=== PATIENT | female | born 2000 | race Caucasian/White ===

== ENCOUNTER → 2024-02-29 | Outpatient (CLI) | payer MEDICAID, SELFPAY ==
[2024-03-04 16:09] LABS: HPV APTIMA, High Risk Negative (Negative)
[2024-03-04 16:47] LABS: HPV Reflexed? YES, CHARGE PATIENT
== END | disposition home or self-care (01) ==
PROVIDERS: Referring Provider Nurse Practitioner Family; Visit Provider Nurse Practitioner Family
DX: Z01.419 Encounter for gynecological examination (general) (routine) without abnormal findings (principal)
CPT/HCPCS: 87624; 88175; G0145

== ENCOUNTER 2025-02-03 09:55 | Emergency (ER) | payer SELFPAY ==
[2025-02-03 09:56] VITALS: BP 119/66; PULSE 80; RESP 18; TEMP 36.9; O2SAT 100; BMI 33.9
[2025-02-03] MEDS: Orphenadrine 60 MG/2 ML Ampul IM (10:32)
--- NOTE | 2025-02-03 10:32 | EDS_ITS ---
HPI History of Present Illness Chief Complaint: Back Narrative Narrative: 24-year-old female past medical history of previous sciatica, last episode approximately 1 year ago which she self treated with [id number] medications presents with at least 3 days of increasing low back pain. She denies any fevers or chills, no loss of bowel or bladder, no saddle anesthesia. She states it feels like her previous sciatica episodes where she has left low back pain that radiates down her leg. Pain is sharp and stabbing. It is worse with standing and walking and even movement of her low back. No recent falls. She has been trying acetaminophen without relief. PFSH PFS Medical History no medical history no medical history Home Medications ?Medication ?Instructions ?Recorded ?Last Taken ?Type cyclobenzaprine 10 mg tablet 10 mg PO TID PRN Muscle S pasm #20 02/03/25 Unknown Rx TABLETS naproxen 500 mg tablet (Naprosyn) 500 mg PO BID PRN pa in #20 tabs 02/03/25 Unknown Rx Allergy/AdvReac Type Severity Reaction Status Date / Time No Known Allergies Allergy Verified 02/03/25 09:56 Social History Smoking Status: Never smoker ROS ROS ED ROS Narrative Review of systems positive for low back pain with radiation down left leg to foot. No fevers or chills, no loss of bowel or bladder, no saddle anesthesia. Described more as sharp and stabbing. No recent falls or trauma. No dysuria or hematuria. Similar to previous sciatica episode last year. Ongoing for 3 days. EXAM Physical Exam Narrative Exam Narrative: Afebrile. Vital signs noted. Nontoxic-appearing. Cardiovascular examination regular rate and rhythm. Lungs are clear to auscultation bilaterally. Abdomen is soft nontender with positive bowel sounds. Mild tenderness to palpation on left paraspinal musculature with minimal and sciatic notch. No vertebral point tenderness or step-off noted. Neurovascular tact of bilateral lower extremities. Tightness in back elicited with straight leg raising, but negative for cross symptoms. DTRs equal and symmetric. Palpable dorsalis pedis pulse, l eft. EHL intact bilaterally. Const Vital Signs: 02/03/25 09:56 Temperature 98.4 F Temperature Source Oral Pulse Rate 80 Respiratory Rate 18 Blood Pressure 119/66 Blood Pressure Mean 83 Pulse Ox 100 Oxygen Delivery Method Room Air MDM MDM MDM Narrative Medical decision making narrative: The differential diagnosis includes but not limited to sciatica versus disc herniation versus musculoskeletal back pain. Clinically I have low suspicion for cauda equina and there are no red flag signs. I do not feel that she requires imaging as there is been no recent trauma. I do not feel she requires laboratory work either. She has a Nexplanon so I am not concerned about ectopic and the history and physical does not support this. She was given intramuscular injections at her request for Norflex and Toradol. I did write her prescriptions for Flexeril and naproxen and referred her to the [facility] as she states that she does not have health insurance currently. I feel she can be discharged to follow-up with primary care to treat her sciatica/lumbar radiculopathy. Return instructions to the emergency department were reviewed. Patient is agreeable to the plan. Disposition is discharged home in stable condition. History & Record Review Additional record(s) reviewed:: No prior records (No prior ED visits) Discharge Plan Triage Chief Complaint: Back ED Provider: Tank Albright Dx/Rx/DC Orders Clinical Impression: Sciatica of left side, Left lumbar radiculopathy Instructions: ED Back Pain (Acute or Chronic), ED Sciatica Prescriptions: New naproxen [Naprosyn] 500 mg tablet 500 mg PO BID PRN (Reason: pain) Qty: 20 0RF cyclobenzaprine 10 mg tablet 10 mg PO TID PRN (Reason: Muscle Spasm) Qty: 20 0RF Referrals: Shailesh Vázquez VSYg, COMPUTER TECH-C [[facility]] - 1 Week if not improving Activity Restrictions/Additional Instructions: Medication as directed. Follow-up with primary care. Return with fever, new or worsening symptoms. Print Language: Macedonian Disposition Disposition: Home, Self Care
--- OUTSIDE RECORDS SUMMARY | 2025-02-03 10:51 | XMS RPT_ITS | CCD ---
Author Organization [facility] Team Providers Care Fleet Administrator Name Role Phone Peter Burgos MD Primary Care Provider [phone] PETER BURGOS Attending Unavailable PETER BURGOS Primary Care Unavailable PETER BURGOS Attending Unavailable PETER BURGOS Primary Care Unavailable PETER BURGOS Attending Unavailable PETER BURGOS Primary Care Unavailable Eyal GUEVARA, Jazz Referring Unavailabl e Eyal VSC, Jazz Attending Unavailjose e Eyal REESEC, Jazz Referring Unavailabl e Eyal REESEC, Jazz Attending Peter Zendejas MD Primary Care Provider PETER BURGOS Primary Care Unavailable YANELY PARSONS Attending Unavailable PETER BURGOS Primary Care Unavailable Medications Current Medications Medication Drug Class(es) Dates Sig (Normalized) Sig (Original) [id number] 200 actuat albuterol 0.09 mg/actuat metered dose inhaler (2 sources) beta2-Adrenergic Agonist Start: 08-03-2023 End: 08-02-2024 take 2 puff(s) by inhalation every six hours for wheezing albuterol 90 mcg/actuation inhaler Indications: Asthma with acute exacerbation, unspecified asthma severity, unspecified whether persistent Inhale 2 puffs every 6 hours if needed for wheezing. 18 g 11 08/03/2023 08/03/2023 Discontinued (Reorder) busPIRone hydrochloride 10 mg oral tablet (8 sources) Start: 06-15-2023 End: 08-02-2024 busPIRone (BUSPAR) 10 mg tablet 06/15/2023 Active citalopram 20 mg oral tablet (8 sources) Serotonin Reuptake Inhibitor Start: 08-03-2023 End: 08-03-2023 take 1 tablet by mouth once daily citalopram (CeleXA) 20 mg tablet Indications: Moderate episode of recurrent major depressive disorder (CMS/HCC) Take 1 tablet (20 mg) by mouth once daily. 30 tablet 11 08/03/2023 08/03/2023 Discontinued (Reorder) Start: 06-15-2023 End: 08-03-2023 citalopram hydrobromide (JOSE EXA) 10 mg tablet 06/15/2023 Active etonogestrel 68 mg drug implant (3 sources) Progestin Start: 05-16-2024 End: 05-16-2027 68 mg, SUBDERMAL, ONCE (UP TO 30 DAYS AMB), 1 dose, On Wed05/16/24 at 1200, Hazardous Potential Reproductive Risk Drug: Use appropriate PPE. Must be inserted subdermally in the upper arm by a trained healthcare provider. Completed/Discontinued Medications Medication Drug Class(es) Dates Sig (Normalized) Sig (Original) Desogestrel / Ethinyl Estradiol (9 sources) Progestin, Estrogen Start: 05-08-2023 End: 05-16-2024 ENSKYCE 0.15-0.03 mg per tablet 05/08/2023 05/16/2024 Discontinued Start: 05-08-2023 ENSKYCE 0.15-0 .03 mg per tablet 05/08/2023 Active Start: 05-08-2023 ENSKYCE 0.15-0 .03 mg per tablet Start: 05-08-2023 take 1 tablet by jasiel th once daily Enskyce 0.15-0.03 mg tablet Take 1 tablet by mouth once daily. 0 05/08/2023 Active End: 05-16-2024 desogestrel-ethinyl estradio l (JULEBER ORAL) Take by mouth. 05/16/2024 Discontinued desogestrel-ethi nyl estradiol (JULEBER ORAL) Take by mouth. Active desogestrel-ethi nyl estradiol (JULEBER ORAL) Take by mouth. 0 Active Comment on above: Take by mouth. norethindrone-e.est radiol-iron (LO LOESTRIN FE ORAL) (3 sources) End: 05-16-2024 take 1 tablet by mouth once daily norethindrone-e.estradi ol-iron (LO LOESTRIN FE ORAL) Take 1 tablet by mouth once daily. 05/16/2024 Discontinued take 1 tablet by jasiel th once daily norethindrone-e.estradiol-iron (LO LOEST RIN FE ORAL) Take 1 tablet by mouth once daily. Active take 1 tablet by jasiel th once daily norethindrone-e.estradiol-iron (LO LOEST RIN FE ORAL) Take 1 tablet by mouth once daily. 0 Active Comment on above: Take 1 tablet by jasiel th once daily. Problems Active Problems Problem Classification Problem Date Documented Date Episodic/Chronic Administrative/social admission (2 sources) Persons encountering health services in other specified circumstances; Translations: [Persons encountering health services in other specified circumstances] Onset: 06-15-2023 Episodic Anxiety disorders (8 sources) Anxiety; Translations: [Anxiety disorder, unspecified] Onset: 06-15-2023 06-15-2023 Chronic Asthma (4 sources) Exacerbation of asthma; Translations: [Unspecified asthma with (acute) exacerbation] Onset: 08-03-2023 08-03-2023 Chronic Cataract (6 sources) Juvenile cataract; 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, bilateral] Onset: 06-15-2023 06-15-2023 Chronic Immunizations and screening for infectious disease (13 sources) Patient encounter status; Translations: [Encounter for screening for infections with a predominantly sexual mode of transmission] Onset: 06-15-2023 06-15-2023 Episodic Mood disorders (8 sources) Recurrent major depressive episodes, moderate ; Translations: [Major depressive disorder, recurrent, moderate] Onset: 06-15-2023 06-15-2023 Chronic Other screening for suspected conditions (not mental disorders or infectious disease) (4 sources) Encounter for screening for diabetes mellitus; Translations: [Encounter for screening for lipoid disorders] Onset: 06-15-2023 Episodic Past or Other Problems Problem Classification Problem Date Documented Da te Episodic/Chronic Mood disorders (3 sources) Mood disorders Onset: 06-15-2023 06-15-2023 Results Test Name Value Interpretation Reference Range Facil rodrigoy APPLEon 05-16-2024 CNOV Office Visit (OBGYWM ) DORIS LEWIS ([id number]) 89 F Date Time Provider Department 05/16/24 11:30 AM YANELY PARSONS During your visit today, we recorded the following information about you: Blood pressure Weight Last Period 110/70 93.4 kg 04/27/24 Yanely Parsons MD 05/16/2024 11:58 AM Signed Doris is a 23 year old patient who presents for Nexplanon insertion. Patient's last menstrual period was 04/27/2024. VITALS: BP 110/70 Wt 206 lb (93.4kg) LMP 04/27/2024 test: negative Nexplanon lot #: [id number] Exp date: 04/13/2026 [facility] [id number] UNIVERSAL PROTOCOL / SAFETY CHECKLIST Procedure to be Performed: Nexplanon Insertion Sign In: A Moment of CARE was completed. Personnel directly involved with the procedure wore the appropriate PPE (Personal Protective Equipment). Patient/Surrogate Stated/Verified: PATIENT VERIFIED(optional for EMERGENT procedures): Patient name, Date of , Relevant allergies, and The intended procedure Time Out Communication: Intended patient and procedure match the source documents. Consent documented and matches the intended procedure. Sign Out: SIGN OUT (optional for EMERGENT procedures): No specimen collected. Yanely Parsons MD TECHNIQUE: Patient placed in supine position with right) bent at the elbow and placed over the head. Skin cleansed with betadine. 2 mL of 1% lidocaine injected subQ along insertion site. Nexplanon miah inserted under sterile technique. After insertion by the provider, the miah was palpable under the skin by both patient and provider. Steristrips and sterile pressure dressing applied. AANDP: Nexplanon inserted without complications. The patient was instructed to remove the dressing after 24 hours. Advised to use backup contraception for 7 days. MD Carlyn Herron Reanna, MA 05/16/2024 11:26 AM Signed NEXPLANON PATIENT EDUCATION You may remove dressing in 24 hours. Expect some bruising around insertion site. You may take over the counter pain medication (i.e. Tylenol, motrin, advil, etc) if you have discomfort. Call your provider with excessive bruising or pain. Continue to use condoms for STD prevention. You should use backup contraception for 7 days to prevent . Referring Provider: JAZZ THOMAS [[id number]] Allergies As of Date: 05/16/2024 (No Known Allergies) Date Reviewed: 05/16/2024 Reviewed by: Yanely Parsons MD - Fully Assessed Reason for Visit: NEXPLANON INSERTION [Other] Primary Visit Diagnosis:Insertion of implantable subdermal contraceptive [Z30.017] Order(s):NEXPLANON INSERTION [[id number]] Order #: [id number] [] etonogestrel subdermal implant 68 mg (NEXPLANON)Disp: Rfl: etonogestrel (NEXPLANON) subdermal implant 68 mg1 Each by SUBDERMAL route as directed.Disp: 1 EachRfl: 0 UA DIP,URINE HCG (POC) [[id number]] Order #: [id number]. #:[id number] Prescriptions as of 05/16/2024 - etonogestrel (NEXPLANON) subdermal implant 68 mg 1 Each by SUBDERMAL route as directed. - busPIRone (BUSPAR) 10 mg tablet - citalopram hydrobromide (CELEXA) 10 mg tablet Problem List As Of Date: 05/16/2024 (None) Other instructions from your clinician: NEXPLANON PATIENT EDUCATION You may remove dressing in 24 hours. Expect some bruising around insertion site. You may take over the counter pain medication (i.e. Tylenol, motrin, advil, etc) if you have discomfort. Call your provider with excessive bruising or pain. Continue to use condoms for STD prevention. You should use backup contraception for 7 days to prevent . Prescriptions ordered this encounter Disp Refills Start End ETONOGESTREL 68 MG SUBDERMAL IMPLANT 05/16/2024 05/16/2024 Route: SDRM ETONOGESTREL 68 MG SUBDERMAL IMPLANT 1 Ea* 0 05/16/2024 05/16/2027 Class: In Office Route: SDRM Si Each by SUBDERMAL route as directed. Medications Discontinued During This Encounter Prescriptions - desogestrel-ethinyl estradiol (JULEBER ORAL) (Discontinued) Reported on 07/20/2023 - norethindrone-e.estra diol-iron (LO LOESTRIN FE ORAL) (Discontinued) Reported on 07/20/2023 - ENSKYCE 0.15-0.03 mg per tablet (Discontinued) Encounter Status:Closed by YANELY PARSONS on 05/16/24 Normal [facility] UA DIP,URINE HCG (POC)on Beta HCG ( test) Ql (U) Negative Negative [facility] Comment on above: Location:[facility], [address], [place], [address] Postmaster (POCT) Internal QC OK [facility] Location:[facility], [address], [place], [place], [id number] [place] [address] POINT OF CARE [facility] CNPNon 05-15-2024 CNPN Telephone (OBGYWM) DORIS LEWIS ([id number]) 89 F Date Time Provider Department 05/15/24 JAZZ THOMAS During your visit today, we recorded the following information about you: Katherin Alcocer MA 05/15/2024 8:05 AM Signed Patient is scheduled a Nexplanon Insertion for 05/16/[address] Parsons, please sign order. Order will need linked to appointment when it is filed. TERRANCE Christianson Jessica, APRN.CNM 05/15/2024 9:03 AM Signed Order signed. Jazz Thomas APRN.CNM Allergies As of Date: 05/15/2024 (No Known Allergies) Date Reviewed: 07/20/2023 Reviewed by: Nataly Mccarthy LPN - Fully Assessed Primary Visit Diagnosis:Nexplanon insertion [Z30.017] Order(s):NEXPLANON INSERTION [[id number]] Order #: [id number] Prescriptions as of 05/15/2024 - busPIRone (BUSPAR) 10 mg tablet - citalopram hydrobromide (CELEXA) 10 mg tablet - ENSKYCE 0.15-0.03 mg per tablet - norethindrone-e.estra diol-iron (LO LOESTRIN FE ORAL) Take 1 tablet by mouth once daily. - desogestrel-ethinyl estradiol (JULEBER ORAL) Take by mouth. Problem List As Of Date: 05/15/2024 (None) Encounter Status:Closed by JACQUELINE SAMUELS on 05/15/24 Normal [facility] PAP IG HPV HR APTIMAon 03-04 ADEQ Comment Normal . [facility] Comment on above: Order Comment: Speci men Comment: [id number] Specimen Comment: Source.............Cervix Specimen Comment: LMP / Prev Treat...[id number] Specimen Comment: No. of containers..01 ThinPrep Vial Result Comment: Sati sfactory for evaluation. Endocervical and/or squamous metaplastic cells (endocervical component) are present. Performed By: #### L 7400.0377 #### [facility] [address] [place], [address] COMM . Normal . [facility] Comment on above: Order Comment: Speci men Comment: [id number] Specimen Comment: Source.............Cervix Specimen Comment: LMP / Prev Treat...[id number] Specimen Comment: No. of containers..01 ThinPrep Vial Performed By: #### L 7400.0377 #### [facility] [address] [place], [place], [address] COMMENT Comment Normal . [facility] Comment on above: Order Comment: Speci men Comment: [id number] Specimen Comment: Source.............Cervix Specimen Comment: LMP / Prev Treat...[id number] Specimen Comment: No. of containers..01 ThinPrep Vial Result Comment: This liquid based ThinPrep(R) pap test was screened with the use of an image guided system. Performed By: #### L 7400.0377 #### [facility] [address] [place], [place], [id number] DIAG Comment Normal . [facility] Comment on above: Order Comment: Speci men Comment: [id number] Specimen Comment: Source.............Cervix Specimen Comment: LMP / Prev Treat...[id number] Specimen Comment: No. of containers..01 ThinPrep Vial Result Comment: NEGA TIVE FOR INTRAEPITHELIAL LESION OR MALIGNANCY. Performed By: #### L 7400.0377 #### [facility] [address] [place], [address] HPV APTIMA, HR Negative Normal Negative [facility] Comment on above: Order Comment: Speci men Comment: [id number] Specimen Comment: Source.............Cervix Specimen Comment: LMP / Prev Treat...[id number] Specimen Comment: No. of containers..01 ThinPrep Vial Result Comment: This nucleic acid amplification test detects fourteen high- risk HPV types (16,18,31,33,35,39,45,51,52,56,58,59,66,68) without differentiation. Performed at: - [address] [id number] Dragline Operator Helper: Chanel Cooney MD, Phone: [phone] Performed at: =[address] [id number] Dragline Operator Helper: Chanel Cooney MD, Phone: [phone] Performed By: #### L 7400.0377 #### [facility] [address] [place], [place], [address] PAPSMR Comment Normal . [facility] Comment on above: Order Comment: Speci men Comment: [id number] Specimen Comment: Source.............Cervix Specimen Comment: LMP / Prev Treat...[id number] Specimen Comment: No. of containers..01 ThinPrep Vial Result Comment: The Pap smear is a screening test designed to aid in the detection of premalignant and malignant conditions of the uterine cervix. It is not a diagnostic procedure and should not be used as the sole means of detecting cervical cancer. Both false-positive and false-negative reports do occur. Performed By: #### L 7400.0377 #### [facility] [address] [place], [address] PERFORM Comment Normal . [facility] Comment on above: Order Comment: Speci men Comment: [id number] Specimen Comment: Source.............Cervix Specimen Comment: LMP / Prev Treat...[id number] Specimen Comment: No. of containers..01 ThinPrep Vial Result Comment: Jenna Zeng, Engineering Drafter (ASCP) Performed By: #### L 7400.0377 #### [facility] [address] [place], [address] CNOVon 07-20-2023 [facility] DORIS LEW[facility] ([id number]) 89 F Date Time Provider Department 07/20/23 2:30 PM TIARRA GALEANO [facility] During your visit today, we recorded the following information about you: Temperature Pulse Respiration Blood pressure 99.7 degrees 108/minute 18/minute 106/64 Weight 105.2 kg Tiarra Galeano PA-C 07/20/2023 2:53 PM Signed This note was created using NoteWriter. Subjective Doris Lewis is a 22 year old female. HPI Presents with cough, congestion, body aches, fever chills over the past 2 days. She took a home COVID test yesterday which was positive. She has vomited twice. She is able to keep fluids down. She has taken [place] cold axkj-fxu-dconilr. No diarrhea. She needed a PCR test for work so came in for evaluation. Review of Systems Constitutional: Positive for chills, fatigue and fever. HENT: Positive for congestion, rhinorrhea and sore throat. Negative for ear pain. Respiratory: Positive for cough. Negative for shortness of breath. Cardiovascular: Negative. Gastrointestinal: Positive for nausea and vomiting. Negative for abdominal pain and diarrhea. Genitourinary: Negative. Musculoskeletal: Positive for myalgias. Neurological: Positive for headaches. All other systems reviewed and are negative. PAST MEDICAL HISTORY Diagnosis Date Asthma Congenital cataract Environmental allergies Scoliosis Current Outpatient Medications Medication Sig Dispense Refill busPIRone (BUSPAR) 10 mg tablet citalopram hydrobromide (CELEXA) 10 mg tablet ENSKYCE 0.15-0.03 mg per tablet norethindrone-e.estra diol-iron (LO LOESTRIN FE ORAL) Take 1 tablet by mouth once daily. (Patient not taking: Reported on 07/20/2023) desogestrel-ethinyl estradiol (JULEBER ORAL) Take by mouth. (Patient not taking: Reported on 07/20/2023) No current facility-administered medications for this visit. PAST SURGICAL HISTORY Procedure Laterality Date CATARACT EXTRACTION HX Right 2006 lens removed FAMILY HISTORY Problem Relation Age of Onset Diabetes Paternal Grandmother Cardiomyopathy Paternal Grandmother Systemic Lupus Erythematosus Paternal Grandmother Parkinson?s Disease Paternal Grandmother other (congestive heart failure) Paternal Grandmother Social History Tobacco Use Smoking status: Never Smokeless tobacco: Never Vaping Use Vaping Use: Never used Substance Use Topics Alcohol use: Yes Drug use: Not Currently Objective BP 106/64 Pulse 108 Temp 37.6 ?C (99.7 ?F) (Tympanic) Resp 18 Wt 105.2 kg (232 lb) LMP 04/13/2020 SpO2 98% Physical Exam Vitals reviewed. Constitutional: Appearance: Normal appearance. HENT: Head: Normocephalic and atraumatic. Right Ear: Tympanic membrane, ear canal and external ear normal. Left Ear: Tympanic membrane, ear canal and external ear normal. Nose: Congestion present. Mouth/Throat: Mouth: Mucous membranes are moist. Pharynx: Oropharynx is clear. Cardiovascular: Rate and Rhythm: Normal rate and regular rhythm. Heart sounds: Normal heart sounds. Pulmonary: Effort: Pulmonary effort is normal. Breath sounds: Normal breath sounds. Musculoskeletal: Cervical back: Neck supple. Lymphadenopathy: Cervical: No cervical adenopathy. Skin: General: Skin is warm and dry. Findings: No rash. Neurological: Mental Status: She is alert. Assessment and Plan ASSESSMENT/PLAN: 1. Suspected COVID-19 virus infection - ICD9: V01.79, ICD10: Z20.822 PCR COVID test pending, given work note. Discussed lbys-hvx-hgdoabu medications. Discussed quarantine. states he has been quarantining discussed red flags to be seen again. Patient agreeable. - COVID NAAT, UPPER RESPIRATORY, ROUTINE Tiarra Galeano PA-C Allergies As of Date: 07/20/2023 (No Known Allergies) Date Reviewed: 07/20/2023 Reviewed by: Nataly Mccarthy LPN - Fully Assessed Reason for Visit: Cough [28] Cmt: Cough, runny nose, BAILON and bodyaches x 2 days Primary Visit Diagnosis:Suspected COVID-19 virus infection [Z20.822] Order(s):COVID NAAT, UPPER RESPIRATORY, ROUTINE [SQCOVID] Order #: [id number]. #:[id number] Prescriptions as of 07/20/2023 - busPIRone (BUSPAR) 10 mg tablet - citalopram hydrobromide (CELEXA) 10 mg tablet - ENSKYCE 0.15-0.03 mg per tablet - norethindrone-e.estra diol-iron (LO LOESTRIN FE ORAL) Take 1 tablet by mouth once daily. - desogestrel-ethinyl estradiol (JULEBER ORAL) Take by mouth. Problem List As Of Date: 07/20/2023 (None) Letter Text Encounter Status:Closed by TIARRA GALEANO on 07/20/23 Normal [facility] COVID NAAT, UPPER RESPIRATOR Y, ROUTINEon 07-20-2023 SARS-CoV-2 (COVID-19) RNA MILAN+probe Ql (Resp) Not detected See comment [facility] SARS-CoV-2 RNA Resp Ql MILAN+p robeon 07-20-2023 SARS-CoV-2 (COVID-19) RNA MILAN+probe Ql (Resp) COVID 19 RESULT: Not detected The method used is RT-PCR or an equivalent NAAT method. Reference Range (the expected result in uninfected individuals): Not detected Normal [facility] Comment on above: Performed By: #### 9 4500-6 #### [facility] CLIA [id number] [facility] [id number] [place] [address] [place] C. trachomatis and N. gonorr hoeae DNA MILAN+probe Nom (Unsp spec)on 06-15-2023 C. trachomatis rRNA MILAN+probe Ql (Unsp spec) Negative Normal Negative [facility] Comment on above: Order Comment: The A PTIMA Combo 2 assay is FDA-approved NAAT using target capture for the in vitro qualitative detection and differentiation of ribosomal RNA (rRNA) for Chlamydia trachomatis and Neisseria gonorrhoeae testing on clinician-collected endocervical, PreservCyt solution liquid Pap specimens, vaginal, throat, rectal, and male urethral swab specimens; patient-collected vaginal swab specimens, and female and male urine specimens from symptomatic and asymptomatic individuals. Samples from all other sites are not validated for this method. Performed By: #### 3 6903-3 #### ARIANNE Ruiz ([id number]) [facility] [address] [place] [address] N. gonorrhoeae DNA Probe+sig amp Ql (Unsp spec) Negative Normal Negative [facility] Comment on above: Order Comment: The A PTIMA Combo 2 assay is FDA-approved NAAT using target capture for the in vitro qualitative detection and differentiation of ribosomal RNA (rRNA) for Chlamydia trachomatis and Neisseria gonorrhoeae testing on clinician-collected endocervical, PreservCyt solution liquid Pap specimens, vaginal, throat, rectal, and male urethral swab specimens; patient-collected vaginal swab specimens, and female and male urine specimens from symptomatic and asymptomatic individuals. Samples from all other sites are not validated for this method. Performed By: #### 3 6903-3 #### ARIANNE Ruiz ([id number]) [facility] ([facility]) [address] [place] [address] Comprehensive metabolic 2000 panelon 06-15-2023 Albumin BCP dye [Mass/Vol] 4.1 g/dL Normal 3.4-5.0 [facility] Comment on above: Performed By: #### 2 4323-8 #### ARIANNE Ruiz ([id number]) [facility] ([facility]) [id number] [place] [address] ALP [Catalytic activity/Vol] 62 U/L Normal 33-110 [facility] Comment on above: Performed By: #### 2 4323-8 #### ARIANNE Ruiz ([id number]) [facility]) [address] [place] [address] ALT With P-5'-P [Catalytic activity/Vol] 12 U/L Normal 7-45 [facility] Comment on above: Result Comment: Pavithra ents treated with Sulfasalazine may generate falsely decreased results for ALT. Performed By: #### 2 4323-8 #### ARIANNE Ruiz ([id number]) [facility] ([facility]) [address] [place] [address] Anion gap [Moles/Vol] 12 mmol/L Normal 10-20 [facility] Comment on above: Performed By: #### 2 4323-8 #### ARIANNE Ruiz ([id number]) [facility] ([facility]) [address] [place] [address]43 AST With P-5'-P [Catalytic activity/Vol] 15 U/L Normal 9-39 [facility] Comment on above: Performed By: #### 2 4323-8 #### ARIANNE Ruiz ([id number]) [facility] ([facility]) [address] [place] [address] Bilirubin [Mass/Vol] 0.3 mg/dL Normal 0.0-1.2 [facility] Comment on above: Performed By: #### 2 4323-8 #### ARIANNE Ruiz ([id number]) [facility] ([facility]) [address] [place] [address] Calcium [Mass/Vol] 9.4 mg/dL Normal 8.6-10.6 [facility] Comment on above: Performed By: #### 2 4323-8 #### ARIANNE WOLF L ([id number]) [facility] ([facility]) [address] [place] [address] Chloride [Moles/Vol] 106 mmol/L Normal 98-107 [facility] Comment on above: Performed By: #### 2 4323-8 #### ARIANNE WOLF L ([id number]) [facility] ([facility]) [address] [place] [address] CO2 [Moles/Vol] 25 mmol/L Normal 21-32 [facility] Comment on above: Performed By: #### 2 4323-8 #### ARIANNE Ruiz ([id number]) [facility] ([facility]) [address] [place] [address] Creatinine [Mass/Vol] 0.54 mg/dL Normal 0.50-1.05 [facility] Comment on above: Performed By: #### 2 4323-8 #### ARIANNE Ruiz ([id number]) [facility] ([facility]) [address] [place] [address] GFR/1.73 sq M.predicted MDRD (S/P/Bld) [Vol rate/Area] mL/min/{1.73_m2} Normal >60 [facility] Comment on above: Result Comment: Calc ulations of estimated GFR are performed using the 2020 CKD-EPI Study Refit equation without the race variable for the IDMS-Traceable creatinine methods. https://jasn.asnjournals.org/content//ASN.463197335 8 Performed By: #### 2 4323-8 #### ARIANNE Ruiz ([id number]) [facility]) [address] [place] [address] Glucose [Mass/Vol] 90 mg/dL Normal 74-99 [facility] Comment on above: Performed By: #### 2 4323-8 #### ARIANNE Ruiz ([id number]) [facility]) [id number] [place] [address] Potassium [Moles/Vol] 4.4 mmol/L Normal 3.5-5.3 [facility] Comment on above: Performed By: #### 2 4323-8 #### ARIANNE WOLF L ([id number]) [facility] ([facility]) [address] [place] [address] Protein [Mass/Vol] 6.8 g/dL Normal 6.4-8.2 [facility] Comment on above: Performed By: #### 2 4323-8 #### ARIANNE Ruiz ([id number]) [facility] ([facility]) [address] [place] [address] Sodium [Moles/Vol] 139 mmol/L Normal 136-145 [facility] Comment on above: Performed By: #### 2 4323-8 #### ARIANNE WOLF L ([id number]) [facility] ([facility]) [address] [place] [address] Urea nitrogen [Mass/Vol] 7 mg/dL Normal 6-23 [facility] Comment on above: Performed By: #### 2 4323-8 #### ARIANNE WOLF L ([id number]) [facility]) [address] [place] [address]323 HIV 1+2 Ab+HIV1 p24 Agon HIV 1+2 Ab+HIV1 p24 Ag IA Ql Non-Reactive Normal Nonreactive [facility] Comment on above: Order Comment: HIV A g/Ab screen is performed using the Siemens freshbagllAffinity Systems HIV Ag/Ab Combo assay which detects the presence of HIV p24 antigen as well as antibodies to HIV-1 (Group M and O) and HIV-2. No laboratory evidence of HIV infection. If acute HIV infection is suspected, consider testing for HIV RNA by PCR (viral load). Performed By: #### 5 6888-1 #### ARIANNE Ruiz ([id number]) [facility]) [address] [place] [address] HbA1c (Bld) [Mass fraction]o n 06-15-2023 Average glucose Estimated from glycated hemoglobin (Bld) [Mass/Vol] 103 mg/dL Normal Not Established [facility] Comment on above: Order Comment: Diagn osis of Diabetes-Adults Non-Diabetic: < or = 5.6% Increased risk for developing diabetes: 5.7-6.4% Diagnostic of diabetes: > or = 6.5% Monitoring of Diabetes Age (y)....................... Therapeutic Goal (%) Adults: >18.........................<7.0 Pediatrics: 13-18...................<7.5 Pediatrics: 7-12....................<8.0 Pediatrics: 0-6..................... 7.5-8.5 [place] [employer]. Diabetes Care 33(S1), Jun 2009 Performed By: #### 4 548-4 #### ARIANNE Ruiz ([id number]) [facility]) [address] [place] [address] Hemoglobin A1c/Hemoglobin.to rahul 06-15-2023 HbA1c (Bld) [Mass fraction] 5.2 % Normal see below [facility] Comment on above: Order Comment: Diagn osis of Diabetes-Adults Non-Diabetic: < or = 5.6% Increased risk for developing diabetes: 5.7-6.4% Diagnostic of diabetes: > or = 6.5% Monitoring of Diabetes Age (y)....................... Therapeutic Goal (%) Adults: >18.........................<7.0 Pediatrics: 13-18...................<7.5 Pediatrics: 7-12....................<8.0 Pediatrics: 0-6..................... 7.5-8.5 [place] [employer]. Diabetes Care 33(S1), Jun 2009 Performed By: #### 4 548-4 #### ARIANNE Ruiz ([id number]) [facility]) [address] [place] [address] Hepatitis C virus Abon 06-15 HCV Ab Ql (S) Non-Reactive Normal Nonreactive [facility] Comment on above: Result Comment: Resu lts from patients taking biotin supplements or receiving high-dose biotin therapy should be interpreted with caution due to possible interference with this test. Providers may contact their local laboratory for further information. Performed By: #### 1 6128-1 #### ARIANNE Ruiz ([id number]) [facility]) [id number] [place] [address] Lipid 1996 panelon 4 Cholesterol [Mass/Vol] 168 mg/dL Normal 0-199 [facility] Comment on above: Result Comment: Age Desirable Borderline High High 0-19 Y 0 - 169 170 - 199 >/= 200 20-24 Y 0 - 189 190 - 224 >/= 225 >24 Y 0 - 199 200 - 239 >/= 240 All ranges are based on fasting samples. Specific therapeutic targets will vary based on patient-specific cardiac risk. Pediatric guidelines reference:Pediatrics 2011, 128(S5).Adult guidelines reference: NCEP ATPIII Guidelines,BRYAN 2001, 258:2486-97 Venipuncture immediately after or during the administration of Metamizole may lead to falsely low results. Testing should be performed immediately prior to Metamizole dosing. Performed By: #### 2 4331-1 #### ARIANNE Ruiz ([id number]) [facility]) [address] [place] [address] Cholesterol in HDL [Mass/Vol] 60.1 mg/dL Normal [facility] Comment on above: Result Comment: Age Very Low Low Normal High 0-19 Y < 35 < 40 40-45 ---- 20-24 Y ---- < 40 >45 ---- >24 Y ---- < 40 40-60 >60 Performed By: #### 2 4331-1 #### ARIANNE Ruiz ([id number]) [facility]) [address] [place] [address] Cholesterol in LDL [Mass/Vol] 82 mg/dL Normal <=119 [facility] Comment on above: Result Comment: Near Borderline AGE Desirable Optimal High High Very High 0-19 Y 0 - 109 --- 110-129 >/= 130 ---- 20-24 Y 0 - 119 --- 120-159 >/= 160 ---- >24 Y 0 - 99 100-129 130-159 160-189 >/=190 Performed By: #### 2 4331-1 #### ARIANNE Ruiz ([id number]) [facility]) [address] [place] [address] Cholesterol in VLDL [Mass/Vol] 26 mg/dL Normal 0-40 [facility] Comment on above: Performed By: #### 2 4331-1 #### ARIANNE Ruiz ([id number]) [facility]) [address] [place] [address] CHOLESTEROL/HDL RATIO 2.8 Normal [facility] Comment on above: Result Comment: Ref Values Desirable < 3.4 High Risk > 5.0 Performed By: #### 2 4331-1 #### ARIANNE Ruiz ([id number]) [facility]) [address] [place] [address] NON HDL CHOLESTEROL 108 mg/dL Normal 0-149 [facility] Comment on above: Result Comment: Age Desirable Borderline High High Very High 0-19 Y 0 - 119 120 - 144 >/= 145 >/= 160 20-24 Y 0 - 149 150 - 189 >/= 190 ---- >24 Y 30 mg/dL above LDL Cholesterol goal Performed By: #### 2 4331-1 #### ARIANNE Ruiz ([id number]) [facility]) [address] [place] [address] Triglyceride [Mass/Vol] 130 mg/dL Normal 0-149 [facility] Comment on above: Result Comment: Age Desirable Borderline High High Very High 0 D-90 D 19 - 174 ---- ---- ---- 91 D- 9 Y 0 - 74 75 - 99 >/= 100 ---- 10-19 Y 0 - 89 90 - 129 >/= 130 ---- 20-24 Y 0 - 114 115 - 149 >/= 150 ---- >24 Y 0 - 149 150 - 199 200- 499 >/= 500 Venipuncture immediately after or during the administration of Metamizole may lead to falsely low results. Testing should be performed immediately prior to Metamizole dosing. Performed By: #### 2 4331-1 #### ARIANNE Ruiz ([id number]) [facility]) [address] [place] [address] Treponema pallidum Abon 0 T. pallidum Ab Ql (S) Non-Reactive Normal Nonreactive [facility] Comment on above: Result Comment: No s ignificant level of Treponema pallidum antibody detected. Repeat testing in 2 to 4 weeks may be considered if early infection or incubating syphilis infection is suspected. Performed By: #### 2 2587-0 #### ARIANNE Ruiz ([id number]) [facility]) [address] [place] [address] Vital Signs Date Time Vital Sign Value Performing Clinician Facility 05-16-2024 11:34-0500 Body weight 93.44 kg Yanely Parsons MD Work Phone: [facility] 05-16-2024 11:34-0500 Diastolic blood pressure 70 mm[Hg] Yanely Parsons MD Work Phone: [facility] 05-16-2024 11:34-0500 Systolic blood pressure 110 mm[Hg] Yanely Parsons MD Work Phone: [facility] 08-03-2023 10:43-0500 Body height 167.6 cm Peter Burgos MD Work Phone: [facility] 08-03-2023 10:43-0500 Body mass index (BMI) [Ratio] 37.37 kg/m2 Peter Burgos MD Work Phone: [facility] 08-03-2023 10:43-0500 Body weight 105.01 kg Peter Burgos MD Work Phone: [facility] 08-03-2023 10:43-0500 Diastolic blood pressure 84 mm[Hg] Peter Burgos MD Work Phone: [facility] 08-03-2023 10:43-0500 Heart rate 82 /min Peter Burgos MD Work Phone: [facility] 08-03-2023 10:43-0500 SaO2% (BldA) [Mass fraction] 97 % Peter Burgos MD Work Phone: [facility] 08-03-2023 10:43-0500 Systolic blood pressure 132 mm[Hg] Peter Burgos MD Work Phone: [facility] 07-20-2023 14:32-0500 Body temperature 99.7 [degF] Tiarra Athy PA-C Work Phone: [facility] 07-20-2023 14:32-0500 Body weight 105.23 kg Tiarra Athy PA-C Work Phone: [facility] 07-20-2023 14:32-0500 Diastolic blood pressure 64 mm[Hg] Tiarra Athy PA-C Work Phone: [facility] 07-20-2023 14:32-0500 Heart rate 108 /min Tiarra Athy PA-C Work Phone: [facility] 07-20-2023 14:32-0500 Respiratory rate 18 /min Tiarra Athy PA-C Work Phone: [facility] 07-20-2023 14:32-0500 SaO2% (BldA) [Mass fraction] 98 % Tiarra Athy PA-C Work Phone: [facility] 07-20-2023 14:32-0500 Systolic blood pressure 106 mm[Hg] Tiarra Athy PA-C Work Phone: [facility] 06-22-2023 14:42-0500 Body height 167.6 cm Peter Burgos MD Work Phone: [facility] 06-15-2023 15:06-0500 Body height 167.6 cm Peter Burgos MD Work Phone: [facility] 06-15-2023 15:06-0500 Body mass index (BMI) [Ratio] 38.29 kg/m2 Peter Burgos MD Work Phone: [facility] 06-15-2023 15:06-0500 Body weight 107.59 kg Peter Burgos MD Work Phone: [facility] 06-15-2023 15:06-0500 Diastolic blood pressure 80 mm[Hg] Peter Burgos MD Work Phone: [facility] 06-15-2023 15:06-0500 Heart rate 101 /min Peter Burgos MD Work Phone: [facility] 06-15-2023 15:06-0500 SaO2% (BldA) [Mass fraction] 98 % Peter Burgos MD Work Phone: [facility] 06-15-2023 15:06-0500 Systolic blood pressure 110 mm[Hg] Peter Burgos MD Work Phone: [facility] Encounters Encounter Date Encounter Type Care Provider Facility Start: 05-16-2024 End: 05-16-2024 ambulatory YANELY PARSONS Facility:[facility] Start: 05-16-2024 End: 05-16-2024 Patient encounter procedure Yanely Parsons MD Work Phone: [facility] Comment on above: Insertion of implant able subdermal contraceptive (Primary Dx) Start: 05-15-2024 End: 05-15-2024 Telephone encounter Jazz Thomas APRN.CNM Work Phone: [facility]/Gy[facility]cology Start: 03-23-2024 Encounter for gynecological examination (general) (routine) without abnormal findings Jazz Birch [facility] Start: 03-01-2024 ambulatory [facility] Fa cility:[facility] Start: 02-29-2024 End: 02-29-2024 ambulatory [facility] Facility:[facility] Start: 08-03-2023 End: 08-03-2023 ambulatory [facility] Start: 08-03-2023 End: 08-03-2023 Office outpatient visit 25 minutes Peter Burgos MD Work Phone: [facility] Comment on above: Asthma with acute ex acerbation, unspecified asthma severity, unspecified whether persistent (Primary Dx); Anxiety; Moderate episode of recurrent major depressive disorder (CMS/HCC); Need for vaccine for Td (tetanus-diphtheria) Start: 07-20-2023 End: 07-20-2023 ambulatory PETER BURGOS Facility:[facility] Start: 07-20-2023 End: 07-20-2023 Patient encounter procedure Tiarra Galeano PA-C Work Phone: [facility] Comment on above: Suspected COVID-19 v irus infection (Primary Dx) Start: 06-22-2023 End: 06-22-2023 ambulatory [facility] Start: 06-22-2023 End: 06-22-2023 Office outpatient visit 15 minutes Peter Burgos MD Work Phone: [facility] Comment on above: Moderate episode of recurrent major depressive disorder (CMS/HCC) (Primary Dx); Anxiety Start: 06-15-2023 End: 06-15-2023 ambulatory [facility] Start: 06-15-2023 End: 06-15-2023 Office outpatient new 30 minutes Peter Burgos MD Work Phone: [facility] Comment on above: Encounter to [facility] (Primary Dx); Anxiety; Moderate episode of recurrent major depressive disorder (CMS/HCC); Routine screening for STI (sexually transmitted infection); Juvenile cataract of both eyes, unspecified Infantile/juvenile cataract type; Screening for diabetes mellitus; Screening, lipid Procedures Date Procedure Procedure Detail Performing Clinician Start: 05-16-2024 UA DIP,URINE HCG (POC) Yanely Parsons MD Work Phone: Start: 08-03-2023 TDAP VACCINE GREATER THAN OR EQUAL TO 7YO IM PETER BURGOS Start: 07-20-2023 Sars-cov-2 detection by dna/rna Tiarra Galeano PA-C Work Phone: Start: 06-15-2023 C. TRACHOMATIS + N. GONORRHOEAE, AMPLIFIED PETER BURGOS Start: 06-15-2023 Comprehensive metabo lic 2000 panel - Serum or Plasma PETER BURGOS Start: 06-15-2023 Hemoglobin A1c/Hemoglobin.total in Blood PETER BURGOS Start: 06-15-2023 HEPATITIS C ANTIBODY LA URDiego BURGOS Start: 06-15-2023 HIV 1/2 ANTIGEN/ANTI BODY SCREEN WIH REFLEX TO CONFIRMATION PETER BURGOS Start: 06-15-2023 Lipid panel [facility] Start: 06-15-2023 SYPHILIS SCREENING W ITH REFLEX PETER BURGOS Start: 06-15-2023 Lipid 1996 panel - S bi or Plasma Peter Burgos MD Work Phone: Plan of Treatment Date Care Activity Detail Author Start: 09-11-2049 Zoster Vaccines (1 of 2) Zoste r Vaccines (1 of 2) [facility] Start: 08-03-2033 DTaP/Tdap/Td Vaccine s (8 - Td or Tdap) DTaP/Tdap/Td Vaccines (8 - Td or Tdap) [facility] Start: 08-03-2033 Urine microalbumin profile DTaP,Tdap,Td Vaccine (8 - Td or Tdap) [facility] Start: 06-15-2028 Lipid panel Lipid Panel [facility] Start: 06-15-2024 Diabetes mellitus screening Diabetes Screening [facility] Start: 05-16-2024 End: 05-16-2024 Patient encounter procedure 05/16/2024 11:30 AM EST Office Visit OB/Gynecology [address] [place] [id number] Yanely Parsons MD [address] [place] [id number] Naxplanon Insert [facility] Comment on above: Naxplanon Insert Start: 02-13-2024 Covid-19 Vaccine ( season) Covid-19 Vaccine ( season) [facility] Start: 02-13-2024 Influenza vaccination Influenza Vacc ine (#1) [facility] Start: 02-01-2024 End: 02-01-2024 Patient encounter procedure 02/01/2024 2:00 PM EDT Office Visit [facility] [address] [place] [address] Peter Burgos MD [address] [id number] [facility] Start: 08-03-2023 End: 08-03-2023 Patient encounter procedure 08/03/2023 10:40 AM EST Office Visit [facility] [address] [phone] Peter Burgos MD [address] [id number] [facility] Start: 06-22-2023 End: 06-22-2023 Patient encounter procedure 06/22/2023 2:40 PM EST Office Visit [facility] [address] [phone] Peter Burgos MD [address] [place], [place] [id number] [facility] Start: 06-15-2023 End: 06-15-2024 Chlamydia trachomatis and Neisseria gonorrhoeae DNA [Identifier] in Unspecified specimen by MILAN with probe detection [facility] Work Phone: Comment on above: Expected: 06/15/2023 (Approximate), Expires: 06/15/2024 Start: 06-15-2023 End: 06-15-2024 Comprehensive metabolic 2000 panel - Serum or Plasma [facility] Work Phone: Comment on above: Expected: 06/15/2023 (Approximate), Expires: 06/15/2024 Start: 06-15-2023 End: 06-15-2024 Hemoglobin A1c/Hemoglobin.total in Blood [facility] Work Phone: Comment on above: Expected: 06/15/2023 (Approximate), Expires: 06/15/2024 Start: 06-15-2023 End: 06-15-2024 Hepatitis C virus Ab [Presence] in Serum [facility] Work Phone: Comment on above: Expected: 06/15/2023 (Approximate), Expires: 06/15/2024 Start: 06-15-2023 End: 06-15-2024 HIV 1+2 Ab+HIV1 p24 Ag [Presence] in Serum or Plasma by Immunoassay [facility] Service Area Work Phone: Comment on above: Expected: 06/15/2023 (Approximate), Expires: 06/15/2024 Start: 06-15-2023 End: 06-15-2024 Lipid 1996 panel - Serum or Plasma [facility] Work Phone: Comment on above: Expected: 06/15/2023 (Approximate), Expires: 06/15/2024 Start: 06-15-2023 End: 06-15-2024 Treponema pallidum Ab [Presence] in Serum [facility] Work Phone: Comment on above: Expected: 06/15/2023 (Approximate), Expires: 06/15/2024 Start: 06-14-2023 Depression Assessment Depression Ass essment [facility] Start: 02-12-2023 Covid-19 Vaccine () Covid-19 Vaccine () [facility] Start: 02-12-2023 Influenza vaccination Influenza Vacc ine (#1) [facility] Start: 10-01-2021 DTaP/Tdap/Td Vaccine s (7 - Td or Tdap) DTaP/Tdap/Td Vaccines (7 - Td or Tdap) [facility] Start: 10-01-2021 Urine microalbumin profile DTaP,Tdap,Td Vaccine (7 - Td or Tdap) [facility] Start: 08-11-2021 COVID-19 Vaccine (4 - Moderna series) COVID-19 Vaccine (4 - Moderna series) [facility] Start: 09-11-2020 Screening for malign ant neoplasm of cervix [facility] Start: 09-11-2017 Anxiety Screening Anxiety Screening [facility] Start: 09-11-2017 Depression Screening Depression Scre ening [facility] Start: 09-11-2017 Diabetes mellitus screening Diabetes Screening [facility] Start: 09-11-2017 GC (Gonorrhea) Scree reinaldo (18-24) GC (Gonorrhea) Screening () [facility] Start: 09-11-2017 Hepatitis C screening Hepatitis [facility] Start: 09-11-2017 HIV screening HIV Screening [facility] Start: 09-11-2017 Screening for Chlamy joesph trachomatis Chlamydia Screening () [facility] Start: 02-09-2017 Meningococcal B Vacc ine: Consider Based On Risk (2 of 2 - Risk Bexsero 2-dose series) Meningococcal B Vaccine: Consider Based On Risk (2 of 2 - Risk Bexsero 2-dose series) [facility] Start: 09-11-2013 Peds To Adult Transi tion Annual Assessment Peds To Adult Transition Annual Assessment [facility] Start: 2011 Peds To Adult Transi tion Initial Discussion Peds To Adult Transition Initial Discussion [facility] Start: 1999 HIV screening HIV Screening [facility] Start: 1999 Lipid panel Lipid Panel [facility] Start: 1999 Yearly Adult Physical Yearly Adult P [facility] NEXPLANON INSERTION NEXPLANON IN SERTION Procedures Routine Nexplanon insertion Ordered: 05/15/2024 [facility] Work Phone: Comment on above: Ordered: 05/15/2024 NEXPLANON INSERTION NEXPLANON IN SERTION Procedures Routine Insertion of implantable subdermal contraceptive Ordered: 05/16/2024 [facility] Work Phone: Comment on above: Ordered: 05/16/2024 Immunizations Immunization Date Immunization Notes Care Provider Pily qiuroz 08-03-2023 tetanus toxoid, redu edy diphtheria toxoid, and acellular pertussis vaccine, adsorbed Peter Burgos MD Work Phone: [facility] Work Phone: 07-20-2019 influenza, injectabl e, quadrivalent, preservative free Peter Burgos MD Work Phone: [facility] 07-20-2019 influenza virus vacc ine, unspecified formulation Peter Burgos MD Work Phone: [facility] Work Phone: 01-12-2017 meningococcal B vacc ine, recombinant, OMV, adjuvanted Yanely Parsons MD Work Phone: [facility] 01-12-2017 meningococcal polysaccharide (groups A, C, Y and W-135) diphtheria toxoid conjugate vaccine (MCV4P) Yanely Parsons MD Work Phone: [facility] 04-06-2013 hepatitis A vaccine, pediatric/adolescent dosage, 2 dose schedule Yanely Parsons MD Work Phone: [facility] 04-06-2013 human papilloma viru s vaccine, quadrivalent Yanely Parsons MD Work Phone: [facility] 04-06-2013 influenza, injectabl e, quadrivalent, preservative free Yanely Parsons MD Work Phone: [facility] 11-02-2011 hepatitis A vaccine, pediatric/adolescent dosage, 2 dose schedule Yanely Parsons MD Work Phone: [facility] 11-02-2011 human papilloma viru s vaccine, quadrivalent Yanely Parsons MD Work Phone: [facility] 10-02-2011 meningococcal polysaccharide (groups A, C, Y and W-135) diphtheria toxoid conjugate vaccine (MCV4P) Yanely Parsons MD Work Phone: [facility] 10-02-2011 tetanus toxoid, redu edy diphtheria toxoid, and acellular pertussis vaccine, adsorbed Yanely Parsons MD Work Phone: [facility] 03-11-2010 influenza, seasonal, injectable, preservative free Yanely Parsons MD Work Phone: [facility] 06-22-2009 novel influenza-H1N1 -09, preservative-free, injectable Yanely Parsons MD Work Phone: [facility] 05-02-2009 novel influenza-H1N1 -09, preservative-free, injectable Yanely Parsons MD Work Phone: [facility] 04-22-2009 varicella virus vaccine Laina Parsons MD Work Phone: [facility] 04-03-2008 influenza, seasonal, injectable Yanely Parsons MD Work Phone: [facility] 04-04-2007 influenza, seasonal, injectable Yanely Parsons MD Work Phone: [facility] 09-11-2004 diphtheria, tetanus toxoids and acellular pertussis vaccine Yanely Parsons MD Work Phone: [facility] 09-11-2004 haemophilus influenz ae type b vaccine, conjugate unspecified formulation Yanely Parsons MD Work Phone: [facility] 09-11-2004 measles, mumps and rubella virus vaccine Yanely Parsons MD Work Phone: [facility] 09-11-2004 poliovirus vaccine, inactivated Yanely Parsons MD Work Phone: [facility] 01-03-2001 diphtheria, tetanus toxoids and acellular pertussis vaccine Yanely Parsons MD Work Phone: [facility] 01-03-2001 pneumococcal conjuga te vaccine, 7 valent Yanely Parsons MD Work Phone: [facility] 10-28-2000 pneumococcal conjuga te vaccine, 7 valent Yanely Parsons MD Work Phone: [facility] 09-17-2000 haemophilus influenz ae type b vaccine, conjugate unspecified formulation Yanely Parsons MD Work Phone: [facility] 09-17-2000 hepatitis B vaccine, pediatric or pediatric/adolescent dosage Yanely Parsons MD Work Phone: [facility] 09-17-2000 measles, mumps and rubella virus vaccine Yanely Parsons MD Work Phone: [facility] 09-17-2000 pneumococcal conjuga te vaccine, 7 valent Yanely Parsons MD Work Phone: [facility] 09-17-2000 poliovirus vaccine, inactivated Yanely Parsons MD Work Phone: [facility] 09-17-2000 varicella virus vaccine Laina Parsons MD Work Phone: [facility] 03-31-2000 diphtheria, tetanus toxoids and acellular pertussis vaccine Yanely Parsons MD Work Phone: [facility] 03-31-2000 pneumococcal conjuga te vaccine, 7 valent Yanely Parsons MD Work Phone: [facility] 02-10-2000 diphtheria, tetanus toxoids and acellular pertussis vaccine Yanely Parsons MD Work Phone: [facility] 02-10-2000 haemophilus influenz ae type b vaccine, conjugate unspecified formulation Yanely Parsons MD Work Phone: [facility] 02-10-2000 hepatitis B vaccine, pediatric or pediatric/adolescent dosage Yanely Parsons MD Work Phone: [facility] 02-10-2000 poliovirus vaccine, inactivated Yanely Parsons MD Work Phone: [facility] 1999 diphtheria, tetanus toxoids and acellular pertussis vaccine Yanely Parsons MD Work Phone: [facility] 1999 haemophilus influenz ae type b vaccine, conjugate unspecified formulation Yanely Parsons MD Work Phone: [facility] 1999 hepatitis B vaccine, pediatric or pediatric/adolescent dosage Yanely Parsons MD Work Phone: [facility] 1999 poliovirus vaccine, inactivated Yanely Parsons MD Work Phone: [facility] Payers Date Payer Category Payer Self-pay 2022 Medicaid [id number] 2022 Medicaid [id number] 1999 Unknown [id number] 1999 Unknown [id number] [id number] [id number] 2000 Unknown [id number] [id number] [id number] Unknown [id number] [id number] [id number] Social History Date Type Detail Facility Start: 06-15-2023 End: 07-20-2023 Tobacco smoking status NHIS Never smoked tobacco [facility] Work Phone: Start: 06-15-2023 End: 07-20-2023 Tobacco use and exposure Smokeless tobacco non-user [facility] Work Phone: Start: 06-15-2023 End: 05-16-2024 Alcohol intake Current drinker of alcohol (finding) [facility] Work Phone: Start: 06-15-2023 End: 05-16-2024 Alcohol intake [facility] Work Phone: Start: 06-15-2023 Alcohol [facility] Start: 2000 Sex Assigned At Not on file [facility] Work Phone: Start: 06-15-2023 End: 05-16-2024 Gender identity Not on file [facility] Work Phone: Start: 06-05-2023 End: 08-03-2023 Exposure to SARS-CoV-2 (event) Not sure [facility] National Score (1-100), lower number is lower risk Not on file [facility] NEGATED: Highlighted rowStart: CINTHIA History of tobacco use Passive smoker [facility] Work Phone: Clinical Notes 06-15-2023 to 05-16-2024 Yanely Parsons MD - 05/16/2024 11:26 AM ESTPatient InstructionsTelephone Encounter - Jazz Thomas APRN.CNM - 05/15/2024 9:03 AM Torsten Burgos MD - 08/03/2023 10:40 AM EST Note Date & Type Note Facility 05-16-2024 Note HNO ID: [id number] Author: YANELY PARSONS MD Service: ? Author Type: Physician Type: Progress Notes Filed: 05/16/2024 11:58 Note Text: Doris is a 23 year old patient who presents for Nexplanon insertion. Patient's last menstrual period was 04/27/2024. VITALS: BP 110/70 Wt 206 lb (93.4kg) LMP 04/27/2024 test: negative Nexplanon lot #: [id number] Exp date: 04/13/2026 [facility] [id number] UNIVERSAL PROTOCOL / SAFETY CHECKLIST Procedure to be Performed: Nexplanon Insertion Sign In: A Moment of CARE was completed. Personnel directly involved with the procedure wore the appropriate PPE (Personal Protective Equipment). Patient/Surrogate Stated/Verified: PATIENT VERIFIED(optional for EMERGENT procedures): Patient name, Date of , Relevant allergies, and The intended procedure Time Out Communication: Intended patient and procedure match the source documents. Consent documented and matches the intended procedure. Sign Out: SIGN OUT (optional for EMERGENT procedures): No specimen collected. Yanely Parsons MD TECHNIQUE: Patient placed in supine position with right) bent at the elbow and placed over the head. Skin cleansed with betadine. 2 mL of 1% lidocaine injected subQ along insertion site. Nexplanon miah inserted under sterile technique. After insertion by the provider, the miah was palpable under the skin by both patient and provider. Steristrips and sterile pressure dressing applied. AANDP: Nexplanon inserted without complications. The patient was instructed to remove the dressing after 24 hours. Advised to use backup contraception for 7 days. Yanely Parsons MD [facility] 05-16-2024 History of Presen t illness Narrative Doris is a 23 year old patient who presents for Nexplanon insertion. Patient's last menstrual period was 04/27/2024. VITALS: BP 110/70 Wt 206 lb (93.4kg) LMP 04/27/2024 test: negative Nexplanon lot #: [id number] Exp date: 04/13/2026 [facility] [id number] UNIVERSAL PROTOCOL / SAFETY CHECKLIST Procedure to be Performed: Nexplanon Insertion Sign In: A Moment of CARE was completed. Personnel directly involved with the procedure wore the appropriate PPE (Personal Protective Equipment). Patient/Surrogate Stated/Verified: PATIENT VERIFIED(optional for EMERGENT procedures): Patient name, Date of , Relevant allergies, and The intended procedure Time Out Communication: Intended patient and procedure match the source documents. Consent documented and matches the intended procedure. Sign Out: SIGN OUT (optional for EMERGENT procedures): No specimen collected. Yanely Parsons MD TECHNIQUE: Patient placed in supine position with right) bent at the elbow and placed over the head. Skin cleansed with betadine. 2 mL of 1% lidocaine injected subQ along insertion site. Nexplanon miah inserted under sterile technique. After insertion by the provider, the miah was palpable under the skin by both patient and provider. Steristrips and sterile pressure dressing applied. A&P: Nexplanon inserted without complications. The patient was instructed to remove the dressing after 24 hours. Advised to use backup contraception for 7 days. Yanely Parsons MD documented in this encounter [facility] 05-16-2024 Instructions Katherin Alcocer MA - 05/16/2024 11:26 AM EST NEXPLANON PATIENT EDUCATION You may remove dressing in 24 hours. Expect some bruising around insertion site. You may take over the counter pain medication (i.e. Tylenol, motrin, advil, etc) if you have discomfort. Call your provider with excessive bruising or pain. Continue to use condoms for STD prevention. You should use backup contraception for 7 days to prevent . documented in this encounter [facility] 05-15-2024 Telephone encounter Note Order signed. Jazz Thomas APRN.CNM [facility] Work Phone: 05-15-2024 Miscellaneous Notes Order signed. Jazz Thomas APRN.CNM Patient is scheduled a Nexplanon Insertion for 05/16/[address] Parsons, please sign order. Order will need linked to appointment when it is filed. Katherin Alcocer MA documented in this encounter [facility] 05-15-2024 Telephone encounter Note Patient is scheduled a Nexplanon Insertion for 05/16/[address] Parsons, please sign order. Order will need linked to appointment when it is filed. Katherin Alcocer MA [facility] 08-03-2023 Evaluation + Plan note Associated Problem(s): Asthma with acute exacerbation - Chronic problem, unresolved, new to this provider, requires further workup and treatment - Discussed with pt that her recent illness exacerbated symptoms, it is reasonable to use albuterol but if needing it more frequently would consider ICS vs redoing PFTs and going on a controller [facility] Work Phone: 08-03-2023 Miscellaneous Notes Associated Problem(s): Asthma with acute exacerbation - Chronic problem, unresolved, new to this provider, requires further workup and treatment - Discussed with pt that her recent illness exacerbated symptoms, it is reasonable to use albuterol but if needing it more frequently would consider ICS vs redoing PFTs and going on a controller Associated Problem(s): Moderate episode of recurrent major depressive disorder (CMS/HCC) - refilled buspar and celexa - SI has significantly reduced and patient is safe in outpatient setting Associated Problem(s): Anxiety - refilled buspar and celexa documented in this encounter [facility] Work Phone: 08-03-2023 Evaluation + Plan note Associated Problem(s): Moderate episode of recurrent major depressive disorder (CMS/HCC) - refilled buspar and celexa - SI has significantly reduced and patient is safe in outpatient setting [facility] Work Phone: 08-03-2023 Evaluation + Plan note Associated Problem(s): Anxiety - refilled buspar and celexa [facility] Work Phone: 08-03-2023 History of Presen t illness Narrative Subjective: Doris Lewis is a 22 y.o. female who presents to clinic today for Follow-up (6 WK FU) Mood: She feels that her mood is much more stable - she takes her citalopram in the morning - buspar and control at night - she hasn't noticed any side effects - she does notice when she misses her medications - thoughts of suicide have decreased significantly, down to once weekly, no current plan - she notes that it is passive SI at this point - she did do therapy in the past in college and at [place] [id number], she found it moderately helpful Asthma: - she notes shortness of breath and difficulty with stairs with recent illness - she has a history of using albuterol inhalers Review of Systems Assessment/Plan: Doris Lewis is a 22 y.o. female with a history of asthma, anxiety, depression who presents to clinic today to address the following issues: 1. Asthma with acute exacerbation, unspecified asthma severity, unspecified whether persistent albuterol 90 mcg/actuation inhaler DISCONTINUED: albuterol 90 mcg/actuation inhaler 2. Anxiety busPIRone (Buspar) 10 mg tablet Follow Up In Primary Care - Established DISCONTINUED: busPIRone (Buspar) 10 mg tablet 3. Moderate episode of recurrent major depressive disorder (CMS/HCC) citalopram (CeleXA) 20 mg tablet DISCONTINUED: citalopram (CeleXA) 20 mg tablet 4. Need for vaccine for Td (tetanus-diphtheria) Tdap vaccine, age 7 years and older (BOOSTRIX) Problem List Items Addressed This Visit Anxiety Overview Hx of anxiety for several years. She recently was treated successfully with buspar and citalopram. She had to stop due to extenuating circumstances. GAD7 -14 06/15/23 Current Assessment & Plan - refilled buspar and celexa Relevant Medications busPIRone (Buspar) 10 mg tablet Other Relevant Orders Follow Up In Primary Care - Established Moderate episode of recurrent major depressive disorder (CMS/HCC) Overview Hx of depression for several years. She recently was treated successfully with buspar and citalopram. She had to stop due to extenuating circumstances. PHQ9 - 12 06/15/23 Current Assessment & Plan - refilled buspar and celexa - SI has significantly reduced and patient is safe in outpatient setting Relevant Medications citalopram (CeleXA) 20 mg tablet Asthma with acute exacerbation - Primary Current Assessment & Plan - Chronic problem, unresolved, new to this provider, requires further workup and treatment - Discussed with pt that her recent illness exacerbated symptoms, it is reasonable to use albuterol but if needing it more frequently would consider ICS vs redoing PFTs and going on a controller Relevant Medications albuterol 90 mcg/actuation inhaler Other Visit Diagnoses Need for vaccine for Td (tetanus-diphtheria) Relevant Orders Tdap vaccine, age 7 years and older (BOOSTRIX) There are no Patient Instructions on file for this visit. Follow up: 6 months Return precautions discussed. An After Visit Summary was given to the patient. All questions were answered and patient in agreement with plan. Objective: BP 132/84 Pulse 82 Ht 1.676 m (5' 6) Wt 105 kg (231 lb 8 oz) SpO2 97% BMI 37.37 kg/m Physical Exam Vitals and nursing note reviewed. Constitutional: General: She is not in acute distress. Appearance: Normal appearance. HENT: Head: Normocephalic and atraumatic. Mouth/Throat: Mouth: Mucous membranes are moist. Eyes: General: No scleral icterus. Right eye: No discharge. Left eye: No discharge. Extraocular Movements: Extraocular movements intact. Conjunctiva/sclera: Conjunctivae normal. Pulmonary: Effort: No respiratory distress. Breath sounds: Wheezing present. Skin: General: Skin is warm and dry. Neurological: General: No focal deficit present. Mental Status: She is alert and oriented to person, place, and time. Psychiatric: Attention and Perception: Attention normal. Mood and Affect: Mood normal. Speech: Speech normal. Behavior: Behavior normal. Cognition and Memory: Cognition and memory normal. Judgment: Judgment normal. I spent 16 minutes in total time for this visit including all related clinical activities before, during, and after the visit excluding other billable activities/procedure time. Peter Burgos MD documented in this encounter [facility] Work Phone: 07-20-2023 Note HNO ID: [id number] Author: TIARRA GALEANO PA-C Service: ? Author Type: Physician [employer] Type: Progress Notes Filed: 07/20/2023 14:53 Note Text: This note was created using Chujianriter. Subjective Doris Lewis is a 22 year old female. HPI Presents with cough, congestion, body aches, fever chills over the past 2 days. She took a home COVID test yesterday which was positive. She has vomited twice. She is able to keep fluids down. She has taken [place] cold [id number]-vyjksxn. No diarrhea. She needed a PCR test for work so came in for evaluation. Review of Systems Constitutional: Positive for chills, fatigue and fever. HENT: Positive for congestion, rhinorrhea and sore throat. Negative for ear pain. Respiratory: Positive for cough. Negative for shortness of breath. Cardiovascular: Negative. Gastrointestinal: Positive for nausea and vomiting. Negative for abdominal pain and diarrhea. Genitourinary: Negative. Musculoskeletal: Positive for myalgias. Neurological: Positive for headaches. All other systems reviewed and are negative. PAST MEDICAL HISTORY Diagnosis Date Asthma Congenital cataract Environmental allergies Scoliosis Current Outpatient Medications Medication Sig Dispense Refill busPIRone (BUSPAR) 10 mg tablet citalopram hydrobromide (CELEXA) 10 mg tablet ENSKYCE 0.15-0.03 mg per tablet norethindrone-e.estradiol-iron (LO LOESTRIN FE ORAL) Take 1 tablet by mouth once daily. (Patient not taking: Reported on 07/20/2023) desogestrel-ethinyl estradiol (JULEBER ORAL) Take by mouth. (Patient not taking: Reported on 07/20/2023) No current facility-administered medications for this visit. PAST SURGICAL HISTORY Procedure Laterality Date CATARACT EXTRACTION HX Right 2006 lens removed FAMILY HISTORY Problem Relation Age of Onset Diabetes Paternal Grandmother Cardiomyopathy Paternal Grandmother Systemic Lupus Erythematosus Paternal Grandmother Parkinson?s Disease Paternal Grandmother other (congestive heart failure) Paternal Grandmother Social History Tobacco Use Smoking status: Never Smokeless tobacco: Never Vaping Use Vaping Use: Never used Substance Use Topics Alcohol use: Yes Drug use: Not Currently Objective BP 106/64 Pulse 108 Temp 37.6 ?C (99.7 ?F) (Tympanic) Resp 18 Wt 105.2 kg (232 lb) LMP 04/13/2020 SpO2 98% Physical Exam Vitals reviewed. Constitutional: Appearance: Normal appearance. HENT: Head: Normocephalic and atraumatic. Right Ear: Tympanic membrane, ear canal and external ear normal. Left Ear: Tympanic membrane, ear canal and external ear normal. Nose: Congestion present. Mouth/Throat: Mouth: Mucous membranes are moist. Pharynx: Oropharynx is clear. Cardiovascular: Rate and Rhythm: Normal rate and regular rhythm. Heart sounds: Normal heart sounds. Pulmonary: Effort: Pulmonary effort is normal. Breath sounds: Normal breath sounds. Musculoskeletal: Cervical back: Neck supple. Lymphadenopathy: Cervical: No cervical adenopathy. Skin: General: Skin is warm and dry. Findings: No rash. Neurological: Mental Status: She is alert. Assessment and Plan ASSESSMENT/PLAN: 1. Suspected COVID-19 virus infection - ICD9: V01.79, ICD10: Z20.822 PCR COVID test pending, given work note. Discussed ukdm-pog-uszzhlk medications. Discussed quarantine. states he has been quarantining discussed red flags to be seen again. Patient agreeable. - COVID NAAT, UPPER RESPIRATORY, ROUTINE Tiarra Galeano PA-C [facility] 07-20-2023 History of Presen t illness Narrative This note was created using [employer]. Subjective Doris Lewis is a 22 year old female. HPI Presents with cough, congestion, body aches, fever chills over the past 2 days. She took a home COVID test yesterday which was positive. She has vomited twice. She is able to keep fluids down. She has taken [place]elv[place] cold tdfw-iof-jiykthj. No diarrhea. She needed a PCR test for work so came in for evaluation. Review of Systems Constitutional: Positive for chills, fatigue and fever. HENT: Positive for congestion, rhinorrhea and sore throat. Negative for ear pain. Respiratory: Positive for cough. Negative for shortness of breath. Cardiovascular: Negative. Gastrointestinal: Positive for nausea and vomiting. Negative for abdominal pain and diarrhea. Genitourinary: Negative. Musculoskeletal: Positive for myalgias. Neurological: Positive for headaches. All other systems reviewed and are negative. PAST MEDICAL HISTORY Diagnosis Date Asthma Congenital cataract Environmental allergies Scoliosis Current Outpatient Medications Medication Sig Dispense Refill busPIRone (BUSPAR) 10 mg tablet citalopram hydrobromide (CELEXA) 10 mg tablet ENSKYCE 0.15-0.03 mg per tablet norethindrone-e.estradiol-iron (LO LOESTRIN FE ORAL) Take 1 tablet by mouth once daily. (Patient not taking: Reported on 07/20/2023) desogestrel-ethinyl estradiol (JULEBER ORAL) Take by mouth. (Patient not taking: Reported on 07/20/2023) No current facility-administered medications for this visit. PAST SURGICAL HISTORY Procedure Laterality Date CATARACT EXTRACTION HX Right 2006 lens removed FAMILY HISTORY Problem Relation Age of Onset Diabetes Paternal Grandmother Cardiomyopathy Paternal Grandmother Systemic Lupus Erythematosus Paternal Grandmother Parkinson s Disease Paternal Grandmother other (congestive heart failure) Paternal Grandmother Social History Tobacco Use Smoking status: Never Smokeless tobacco: Never Vaping Use Vaping Use: Never used Substance Use Topics Alcohol use: Yes Drug use: Not Currently Objective BP 106/64 Pulse 108 Temp 37.6 C (99.7 F) (Tympanic) Resp 18 Wt 105.2 kg (232 lb) LMP 04/13/2020 SpO2 98% Physical Exam Vitals reviewed. Constitutional: Appearance: Normal appearance. HENT: Head: Normocephalic and atraumatic. Right Ear: Tympanic membrane, ear canal and external ear normal. Left Ear: Tympanic membrane, ear canal and external ear normal. Nose: Congestion present. Mouth/Throat: Mouth: Mucous membranes are moist. Pharynx: Oropharynx is clear. Cardiovascular: Rate and Rhythm: Normal rate and regular rhythm. Heart sounds: Normal heart sounds. Pulmonary: Effort: Pulmonary effort is normal. Breath sounds: Normal breath sounds. Musculoskeletal: Cervical back: Neck supple. Lymphadenopathy: Cervical: No cervical adenopathy. Skin: General: Skin is warm and dry. Findings: No rash. Neurological: Mental Status: She is alert. Assessment and Plan ASSESSMENT/PLAN: 1. Suspected COVID-19 virus infection - ICD9: V01.79, ICD10: Z20.822 PCR COVID test pending, given work note. Discussed pcja-elt-rfyornt medications. Discussed quarantine. states he has been quarantining discussed red flags to be seen again. Patient agreeable. - COVID NAAT, UPPER RESPIRATORY, ROUTINE Tiarra Galeano PA-C documented in this encounter [facility] 06-22-2023 Evaluation + Plan note Associated Problem(s): Moderate episode of recurrent major depressive disorder (CMS/HCC) - Chronic problem, unresolved, new to this provider, requires further workup and treatment - Discussed with pt that mood has significantly improved and she is feeling so much more stable and well - continuebuspar and citalopram - suicidal ideation has improved significantly and patient feels safe at home [facility] Work Phone: 06-22-2023 Miscellaneous Notes Associated Problem(s): Moderate episode of recurrent major depressive disorder (CMS/HCC) - Chronic problem, unresolved, new to this provider, requires further workup and treatment - Discussed with pt that mood has significantly improved and she is feeling so much more stable and well - continuebuspar and citalopram - suicidal ideation has improved significantly and patient feels safe at home Associated Problem(s): Anxiety - Chronic problem, unresolved, new to this provider, requires further workup and treatment - Discussed with pt that mood has significantly improved and she is feeling so much more stable and well - continuebuspar and citalopram documented in this encounter [facility] Work Phone: 06-22-2023 Evaluation + Plan note Associated Problem(s): Anxiety - Chronic problem, unresolved, new to this provider, requires further workup and treatment - Discussed with pt that mood has significantly improved and she is feeling so much more stable and well - continuebuspar and citalopram [facility] Work Phone: 06-22-2023 History of Presen t illness Narrative Subjective: Doris Lewis is a 22 y.o. female who presents to clinic today for Follow-up (1 W[facility]) Patient Location: [place] at her home Provider Location: In clinic in exam room This visit was conducted via the [employer] secure, live, face to face platform. Mood: - taking celexa in the morning and taking buspar before bed - no noted side effects -suicidal ideation has significantly improved, she did not think about it this week - she has uptitrated to 20mg of celexa - she just started working at [employer] in [place] - she is going to see Dr. Jacobsen for her eye care Review of Systems Assessment/Plan: Doris Lewis is a 22 y.o. female with a history of anxiety, depression and tobacco use who presents to clinic today to address the following issues: 1. Moderate episode of recurrent major depressive disorder (CMS/HCC) 2. Anxiety Problem List Items Addressed This Visit Anxiety Overview Hx of anxiety for several years. She recently was treated successfully with buspar and citalopram. She had to stop due to extenuating circumstances. GAD7 -14 06/15/23 Current Assessment & Plan - Chronic problem, unresolved, new to this provider, requires further workup and treatment - Discussed with pt that mood has significantly improved and she is feeling so much more stable and well - continuebuspar and citalopram Moderate episode of recurrent major depressive disorder (CMS/HCC) - Primary Overview Hx of depression for several years. She recently was treated successfully with buspar and citalopram. She had to stop due to extenuating circumstances. PHQ9 - 12 06/15/23 Current Assessment & Plan - Chronic problem, unresolved, new to this provider, requires further workup and treatment - Discussed with pt that mood has significantly improved and she is feeling so much more stable and well - continuebuspar and citalopram - suicidal ideation has improved significantly and patient feels safe at home Follow up: 6 weeks to recheck mood Return precautions discussed. An After Visit Summary was given to the patient. All questions were answered and patient in agreement with plan. Objective: Ht 1.676 m (5' 6) BMI 38.29 kg/m This was a virtual visit so no vital signs were taken. Video was adequate throughout majority of call. Physical Exam Vitals and nursing note reviewed. Constitutional: General: She is not in acute distress. Appearance: Normal appearance. HENT: Head: Normocephalic and atraumatic. Mouth/Throat: Mouth: Mucous membranes are moist. Eyes: General: No scleral icterus. Right eye: No discharge. Left eye: No discharge. Extraocular Movements: Extraocular movements intact. Conjunctiva/sclera: Conjunctivae normal. Pulmonary: Effort: No respiratory distress. Skin: General: Skin is warm and dry. Neurological: General: No focal deficit present. Mental Status: She is alert and oriented to person, place, and time. Psychiatric: Attention and Perception: Attention normal. Speech: Speech normal. Behavior: Behavior normal. Cognition and Memory: Cognition and memory normal. Judgment: Judgment normal. Comments: Mood was happy I spent 11 minutes in total time for this visit including all related clinical activities before, during, and after the visit excluding other billable activities/procedure time. Peter Burgos MD documented in this encounter [facility] Work Phone: 06-15-2023 Evaluation + Plan note Associated Problem(s): Moderate episode of recurrent major depressive disorder (CMS/HCC) Discussed her suicidal ideation and plan. She does not have access to lethal means and has a supportive friend group who have helped her through this in the past. We discussed decreasing access to means while she is re-titrating her medications. She had a large reduction of SI in the past while on medications. - restart citalopram and buspar - close follow up [facility] Work Phone: 06-15-2023 Miscellaneous Notes Associated Problem(s): Moderate episode of recurrent major depressive disorder (CMS/HCC) Discussed her suicidal ideation and plan. She does not have access to lethal means and has a supportive friend group who have helped her through this in the past. We discussed decreasing access to means while she is re-titrating her medications. She had a large reduction of SI in the past while on medications. 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 female who presents to clinic today for Establish Care Anxiety and Depression: - has been off of medication for 4-5 months - previously was on Buspar 10mg and citalopram 20mg daichastity - her friends are noticing the changes - was previously going to [id number] - went off of them due to cost - was on them for several years - some thoughts of suicide, happening a few times a week, does have a plan, her plan is to take sleeping meds and put a bag over her head - does feel safe at home Review of Systems Assessment/Plan: Doris Lewis is a 22 y.o. female with a history of anxiety, depression and tobacco use who presents to clinic today to address the following issues: 1. Encounter to establish care 2. Anxiety busPIRone (Buspar) 10 mg tablet 3. Moderate episode of recurrent major depressive disorder (CMS/HCC) citalopram (CeleXA) 10 mg tablet 4. Routine screening for STI (sexually transmitted infection) HIV 1/2 Antigen/Antibody Screen with Reflex to Confirmation Hepatitis C Antibody C. Trachomatis / N. Gonorrhoeae, Amplified Detection Syphilis Screen with Reflex HIV 1/2 Antigen/Antibody Screen with Reflex to Confirmation Hepatitis C Antibody C. Trachomatis / N. Gonorrhoeae, Amplified Detection Syphilis Screen with Reflex 5. Juvenile cataract of both eyes, unspecified Infantile/juvenile cataract type Referral to Ophthalmology 6. Screening for diabetes mellitus Hemoglobin A1c Comprehensive metabolic panel Hemoglobin A1c Comprehensive metabolic panel 7. Screening, lipid Lipid panel Lipid panel Problem List Items Addressed This Visit Anxiety Overview Hx of anxiety for several years. She recently was treated successfully with buspar and citalopram. She had to stop due to extenuating circumstances. GAD7 -14 06/15/23 Current Assessment & Plan - restart citalopram 10mg, increase to 20mg after 7 days Relevant Medications busPIRone (Buspar) 10 mg tablet Moderate episode of recurrent major depressive disorder (CMS/HCC) Overview Hx of depression for several years. She recently was treated successfully with buspar and citalopram. She had to stop due to extenuating circumstances. PHQ9 - 12 06/15/23 Current Assessment & Plan Discussed her suicidal ideation and plan. She does not have access to lethal means and has a supportive friend group who have helped her through this in the past. We discussed decreasing access to means while she is re-titrating her medications. She had a large reduction of SI in the past while on medications. - restart citalopram and buspar - close follow up Relevant Medications citalopram (CeleXA) 10 mg tablet Juvenile cataract of both eyes Overview Hx of cataracts of both eyes when she was a child. She did have surgery done by Dr. Jacobsen in the past but needs a revision at this time. Vision is poor enough that she is unable to drive. Current Assessment & Plan - referral to ophthamology Relevant Orders Referral to Ophthalmology Other Visit Diagnoses Encounter to establish care - Primary Routine screening for STI (sexually transmitted infection) Relevant Orders HIV 1/2 Antigen/Antibody Screen with Reflex to Confirmation Hepatitis C Antibody C. Trachomatis / N. Gonorrhoeae, Amplified Detection Syphilis Screen with Reflex Screening for diabetes mellitus Relevant Orders Hemoglobin A1c Comprehensive metabolic panel Screening, lipid Relevant Orders Lipid panel Patient Instructions Depression: START Citalopram 10mg, increase to 20mg after 4-7 days Buspar 10mg nightly SCHEDULE an appointment with a talk therapist. Follow up with Dr. Burgos in 2-4 weeks. Follow up: 1-2 weeks recheck mood Return precautions discussed. An After Visit Summary was given to the patient. All questions were answered and patient in agreement with plan. Objective: BP 110/80 Pulse 101 Ht 1.676 m (5' 6) Wt 108 kg (237 lb 3.2 oz) SpO2 98% BMI 38.29 kg/m Physical Exam Vitals and nursing note reviewed. Constitutional: General: She is not in acute distress. Appearance: Normal appearance. HENT: Head: Normocephalic and atraumatic. Mouth/Throat: Mouth: Mucous membranes are moist. Eyes: General: No scleral icterus. Right eye: No discharge. Left eye: No discharge. Extraocular Movements: Extraocular movements intact. Conjunctiva/sclera: Conjunctivae normal. Pulmonary: Effort: No respiratory distress. Skin: General: Skin is warm and dry. Neurological: General: No focal deficit present. Mental Status: She is alert and oriented to person, place, and time. Psychiatric: Attention and Perception: Attention normal. Mood and Affect: Mood normal. Speech: Speech normal. Behavior: Behavior normal. Cognition and Memory: Cognition and memory normal. Judgment: Judgment normal. I spent 38 minutes in total time for this visit including all related clinical activities before, during, and after the visit excluding other billable activities/procedure time. Peter Burgos MD documented in this encounter [facility] Work Phone: 06-15-2023 Instructions Peter Burgos MD - 06/15/2023 3:20 PM EST Depression: START Citalopram 10mg, increase to 20mg after 4-7 days Buspar 10mg nightly SCHEDULE an appointment with a talk therapist. Follow up with Dr. Burgos in 2-4 weeks. documented in this encounter [facility] Work Phone: Evaluation note Diagnosis Encounter to establish care- Primary Anxiety Anxiety state, unspecified Moderate episode of recurrent major depressive disorder (CMS/HCC) Routine screening for STI (sexually transmitted infection) Screening examination for venereal disease Juvenile cataract of both eyes, unspecified Infantile/juvenile cataract type Screening for diabetes mellitus Screening, lipid documented in this encounter [facility] Work Phone: Evaluation note* Diagnosis Moderate episode of recurrent major depressive disorder (CMS/HCC)- Primary Anxiety Anxiety state, unspecified documented in this encounter [facility] Work Phone: Evaluation note* Diagnosis Suspected COVID-19 virus infection- [facility] Diagnosis Asthma with acute exacerbation, unspecified asthma severity, unspecified whether persistent- Primary Anxiety Anxiety state, unspecified Moderate episode of recurrent major depressive disorder (CMS/HCC) Need for vaccine for Td (tetanus-diphtheria) Need for prophylactic vaccination with tetanus-diphtheria (Td) documented in this encounter [facility] Work Phone: Evaluation note* Diagnosis Nexplanon insertion- Primary Insertion of implantable subdermal contraceptive [facility] Diagnosis Insertion of implantable subdermal contraceptive- Primary [facility] Consultation (Routine) - Authorized Specialty Diagnoses / Procedures Referred By Sonja lim Referred To Contact Ophthalmology Diagnoses Juvenile cataract of both eyes, unspecified Infantile/juvenile cataract type Peter Burgos MD [facility] [place] [address] Referral ID Status Reason Start Date Expiration Date Visits Requested Visits Authorized [id number] Authorized Specialty Services Required 06/15/2023 06/14/2024 1 1 [facility] Work Phone: Reason for referral (narrative)* Consultation (Routine) - Authorized Specialty Diagnoses / Procedures Referred By Contac t Referred To Contact Primary Care Diagnoses Anxiety Moderate episode of recurrent major depressive disorder (CMS/HCC) Procedures Follow Up In Primary Care - Established Peter Burgos MD [address] [place] [id number] Referral ID Status Reason Start Date Expiration Date V isits Requested Visits Authorized [id number] Authorized 06/22/2023 06/21/2024 1 1 [facility] Work Phone: Reason for referral (narrative)* Consultation (Routine) - Authorized Specialty Diagnoses / Procedures Referred By Sonja t Referred To Contact Primary Care Diagnoses Anxiety Procedures Follow Up In Primary Care - Established Peter uBrgos MD [address] [place] [address] Referral ID Status Reason Start Date Expiration Date V isits Requested Visits Authorized [id number] Authorized 08/03/2023 08/02/2024 1 1 [facility] Work Phone: Reason for referral (narrative)* Outpatient Procedure (Routine) - Authorized Specialty Diagnoses / Procedures Referred By Sonja t Referred To Contact [facility] Diagnoses Nexplanon insertion Encounter for surveillance of implantable subdermal contraceptive Procedures NEXPLANON INSERTION ETONOGESTREL IMPLANT SYSTEM INSERT DRUG IMPLANT DEVICE REMOVAL NON-BIODEGRADABLE DRUG DELIVERY IMPLANT Jazz Thomas APRN.CNM [address] [place] [address] [facility] [address] [place] [address] Referral ID Status Reason Start Date Expiration Date Visits Requested Visits Authorized [id number] Authorized Auto-Generat ed Referral 05/15/2024 06/13/2024 [facility] Procedure (Routine) - New Request Specialty Diagnoses / Procedures Referred By Sonja lim Referred To Contact [facility] Diagnoses Insertion of implantable subdermal contraceptive Procedures NEXPLANON INSERTION ETONOGESTREL IMPLANT SYSTEM INSERT DRUG IMPLANT DEVICE Yanely Parsons MD [address] [place] [address] [address] Referral ID Status Reason Start Date Expiration Date Visits Requested Visits Authorized [id number] New Request Auto-Generat ed Referral 05/16/2024 05/16/[address] [facility] Summary Purpose Family History No Family History Records FoundNo Family History Records FoundNo Family History Records Found Advance Directives No Advanced Directives Records FoundNo Advanced Directives Records FoundNo Advanced Directives Records Found Additional Source Comments Reason for Visit (unrecogniz ed section and content) Reason Comments Establish Care Reason Comments Follow-up 1 [facility] Reason Comments Cough Cough, runny nose, H A and bodyaches x 2 days Reason Comments Follow-up 6 [facility] Reason Comments NEXPLANON INSERTION Specialty Diagnoses / Procedures Referred By Sonja lim Referred To Contact [facility] Diagnoses Nexplanon insertion Encounter for surveillance of implantable subdermal contraceptive Procedures NEXPLANON INSERTION ETONOGESTREL IMPLANT SYSTEM INSERT DRUG IMPLANT DEVICE REMOVAL NON-BIODEGRADABLE DRUG DELIVERY IMPLANT Jazz Thomas APRN.CNM [address] [place] [address] [address] Referral ID Status Reason Start Date Expiration Date Visits Requested Visits Authorized [id number] Authorized Auto-Generat ed Referral Patient Cleared - Admin/Chairm an/Director advise to proceed or did not respond 05/15/2024 06/13/2024 2 2 Care Teams (unrecognized sec tion and content) Fleet Administrator Relationship Specialty Start Date End Date Peter Brugos MD [address] [place] [address] PCP - General Family Medicine 06/15/23 Fleet Administrator Relationship Specialty Start Date End Date Peter Burgos MD [address] [place] [address] PCP - General Family Medicine 06/15/23 Fleet Administrator Relationship Specialty Start Date End Date Peter Burgos MD [address] [place] [address] PCP - General Family Medicine 06/17/23 Fleet Administrator Relationship Specialty Start Date End Date Peter Burgos MD [address] [id number] PCP - General Family Medicine 06/17/23 Fleet Administrator Relationship Specialty Start Date End Date Peter Burgos MD [address] [place] [address] PCP - General Family Medicine 06/17/23 Source Comments (unrecognize d section and content) In the event this informatio n is protected by the Federal Confidentiality of Alcohol and Drug Abuse Patient Records regulations: The Federal rules restrict any use of the information to criminally investigate or prosecute any alcohol or drug abuse patient.[facility] event this information is protected by the Federal Confidentiality of Alcohol and Drug Abuse Patient Records regulations: The Federal rules restrict any use of the information to criminally investigate or prosecute any alcohol or drug abuse patient.[facility] the event this information is protected by the Federal Confidentiality of Alcohol and Drug Abuse Patient Records regulations: The Federal rules restrict any use of the information to criminally investigate or prosecute any alcohol or drug abuse patient.[facility] INFORMATION SOURCE (unrecogn ized section and content) DATE CREATED AUTHOR 08/10/2023 [facility] DATE CREATED AUTHOR AUTHOR'S ORGANIZ ATION 03/25/2024 [facility] DATE CREATED AUTHOR AUTHOR'S ORGANIZ ATION 05/18/2024 [facility] FOR RECORDS PERTAINING TO PATIENTS WHO ARE OR HAVE BEEN ENROLLED IN A CHEMICAL DEPENDENCY/SUBSTANCEABUSE PROGRAM, SOME INFORMATION MAY BE OMITTED. This clinical summary was aggregated from multiple sources. Caution should be exercised in using it in the provision of clinical care. This summary normalizes information from multiple sources, and as a consequence, information in this document may materially change the coding, format and clinical context of patient data. In addition, data may be omitted in some cases. CLINICAL DECISIONS SHOULD BE BASED ON THE PRIMARY CLINICAL RECORDS. [facility]. provides no warranty or guarantee of the accuracy or completeness of information in this document.
[2025-02-03 10:58] VITALS: BP 124/78; PULSE 64; RESP 18; TEMP 36.6; O2SAT 99
== END 2025-02-03 10:59 | disposition home or self-care (01) ==
LOC: ED 10:48
PROVIDERS: Emergency Provider Emergency Medicine; Visit Provider Emergency Medicine
DX: M54.32 Sciatica, left side (principal); M54.16 Radiculopathy, lumbar region
CPT/HCPCS: 96372; 99282